=== PATIENT | female | born 1955 | race Caucasian/White ===

== ENCOUNTER 2017-03-11 09:05 | Outpatient (CLI) | payer OTHER ==
[2017-03-11 17:01] LABS: ALBUMIN/GLOBULIN RATIO 1.3 (1.0-2.2); BILIRUBIN,TOTAL 0.5 mg/dL (0.2-1.0); BUN - BLOOD UREA NITROGEN 21 mg/dL (6-20); CALCIUM 9.5 mg/dL (8.5-10.3); CARBON DIOXIDE - CO2 24 mmol/L (21-32); CHLORIDE 105 mmol/L (101-111); CHOL/HDL RATIO 3.7 (<4.4); CHOLESTEROL 187 mg/dL; CREATININE 0.8 mg/dL (0.4-1.0); GFR - MDRD 73 (>89); GLUCOSE 105 mg/dL (70-100); HDL CHOLESTEROL 50 mg/dL; LDL/HDL RATIO 2.2 (<4.4); POTASSIUM 4.6 mmol/L (3.5-5.0); SODIUM 136 mmol/L (135-145); TOTAL PROTEIN 7.5 g/dL (6.7-8.2); TRIGLYCERIDES 137 mg/dL; VLDL CHOLESTEROL 27 mg/dL
== END 2017-03-11 09:06 | disposition home or self-care (01) ==
LOC: LAB.WCP 09:05
PROVIDERS: ATTEND Physician Assistant Medical
DX: E03.9 Hypothyroidism, unspecified (principal); I10 Essential (primary) hypertension
CPT/HCPCS: 36415; 80053; 80061; 84443

== ENCOUNTER 2017-05-02 09:33 | Outpatient (CLI) | payer OTHER ==
[2017-05-02 12:53] LABS: ALBUMIN 4.8 g/dL (3.2-5.5); ALKALINE PHOSPHATASE 59 IU/L (42-121); ALT ALANINE AMINOTRANSFERASE 56 IU/L (10-60); AST ASPARTATE AMINOTRANSFERASE 42 IU/L (10-42); BILIRUBIN,TOTAL 0.3 mg/dL (0.2-1.0); TOTAL PROTEIN 7.8 g/dL (6.7-8.2)
[2017-05-02 12:54] LABS: BILIRUBIN,DIRECT < 0.1 mg/dL (0.1-0.5)
[2017-05-03 12:01] LABS: HEPATITIS C ANTIBODY REACTIVE (NON-REACTIVE)
[2017-05-05 20:22] LABS: HCV RNA QNT 6.68 Log IU/mL (<1.18); HCV RNA QUANT RT PCR 4784617 IU/mL (<15)
== END 2017-05-02 09:34 | disposition home or self-care (01) ==
LOC: LAB.WCP 09:33
PROVIDERS: ATTEND Physician Assistant Medical
DX: R74.8 Abnormal levels of other serum enzymes (principal)
CPT/HCPCS: 36415; 80076; 86704; 86709; 86803

== ENCOUNTER 2017-05-13 09:08 | Outpatient (CLI) | payer OTHER | END 2017-05-13 09:09 | disposition home or self-care (01) | LOC: LAB.WCP 09:08 | PROVIDERS: ATTEND Physician Assistant Medical | DX: B19.20 Unspecified viral hepatitis C without hepatic coma (principal) | CPT/HCPCS: 87902 ==

== ENCOUNTER 2017-05-26 08:16 | Outpatient (CLI) | payer OTHER ==
--- NOTE | 2017-05-26 14:02 | Ultrasound Report ---
RIGHT UPPER QUADRANT ULTRASOUND: 05/26/2017 CLINICAL INDICATION: Elevated liver enzymes. TECHNIQUE: Real-time scanning was performed with fundraising sale representative static images obtained. FINDINGS: The liver measures 16.5 cm. Hepatic echogenicity is increased. No focal parenchymal lesion or intrahepatic biliary dilatation is seen. The common bile duct measures 5 mm. The gallbladder is normal. The right kidney measures 10.1 cm, and demonstrates no hydronephrosis. No free fluid is present. IMPRESSION: ECHOGENIC LIVER, WHICH MAY REPRESENT FATTY INFILTRATION. NO EVIDENCE OF CHOLELITHIASIS OR BILIARY DILATATION. TD: 05/26/2017 14:01
== END 2017-05-26 08:17 | disposition home or self-care (01) ==
LOC: DI 08:16
PROVIDERS: ATTEND Physician Assistant Medical
DX: R74.8 Abnormal levels of other serum enzymes (principal)
CPT/HCPCS: 76705

== ENCOUNTER 2017-06-23 08:00 | Outpatient (CLI) | payer OTHER | END 2017-06-23 08:01 | disposition home or self-care (01) | LOC: LAB.WCP 08:00 | PROVIDERS: ATTEND Physician Assistant | DX: B18.2 Chronic viral hepatitis C (principal) | CPT/HCPCS: 36415; 86704 ==

== ENCOUNTER 2017-10-24 10:23 | Outpatient (CLI) | payer OTHER ==
--- NOTE | 2017-10-25 15:40 | Mammography Report ---
Procedure Date: 10/24/2017 Accession Number: [id number] / [id number] Procedure: KASANDRA - Screening Mammo Dig Bilat CPT Code: FULL RESULT: EXAM: Screening Mammo Dig Bilat DATE: 10/24/2017 10:41 AM CLINICAL HISTORY: 62-year-old nulliparous patient with history of benign right breast biopsy for screening TECHNIQUE: Bilateral CC and MLO views were obtained. COMPARISON: 08/22/2014, 01/28/2011 FINDINGS: The breasts demonstrate heterogeneously dense fibroglandular parenchyma bilaterally. Biopsy marker in the right upper outer posterior breast is stable. Coarse and punctate, typically benign calcifications are present. No suspicious masses, clustered microcalcifications, or regions of architectural distortion are identified. IMPRESSION: Benign findings RECOMMENDATION: Routine annual screening unless otherwise clinically indicated. BIRADS CATEGORY 2: Benign findings STANDARD QUALIFYING STATEMENTS: 1. This examination was reviewed with the aid of Computer-Aided Detection (CAD). 2. A negative or benign imaging report should not delay biopsy if clinically suspicious findings are present. Consider surgical consultation if warrented. More than 5% of cancers are not identified by imaging. 3. Dense breasts may obscure an underlying neoplasm.
== END 2017-10-24 10:24 | disposition home or self-care (01) ==
LOC: DI 10:23
PROVIDERS: ATTEND Physician Assistant Medical
DX: Z12.31 Encounter for screening mammogram for malignant neoplasm of breast (principal)
CPT/HCPCS: 77067

== ENCOUNTER 2017-10-25 09:10 | Day surgery (SDC) | payer OTHER ==
[2017-10-25] MEDS ORDERED: LACTATED RINGERS 1,000 ML IV ONE (09:46)
[2017-10-25] MEDS ORDERED: MIDAZOLAM 2 MG/2 ML VIAL IVP ONE (10:14)
[2017-10-25] MEDS ORDERED: fentaNYL 250 MCG/5 ML VIAL IVP ONE (10:14)
[2017-10-25 11:06] VITALS: BP 130/65
== END 2017-10-25 09:11 | disposition home or self-care (01) ==
LOC: SDS 09:10
PROVIDERS: ATTEND Surgery
PROC: 0DJD8ZZ Inspection of Lower Intestinal Tract, Via Natural or Artificial Opening Endoscopic (ICD-10-PCS; principal; 2017-10-25 10:15)
DX: Z12.11 Encounter for screening for malignant neoplasm of colon (principal); Z80.0 Family history of malignant neoplasm of digestive organs; I10 Essential (primary) hypertension; Z87.891 Personal history of nicotine dependence
CPT/HCPCS: 45378; J3010; J7120